=== PATIENT | male | born 1990 | race Caucasian/White ===

== ENCOUNTER 2023-01-28 09:16 | Emergency (ER) | payer MEDICAID, OTHER ==
[~2023-01-28] VITALS: Ht 180.3 cm; Wt 108.9 kg
[2023-01-28 09:44] VITALS: BP_SYST 154; PULSE 77; RESP 20; TEMP 98; O2SAT 97
[2023-01-28] MEDS ORDERED: DOXY100C PO (09:48)
[2023-01-28] MEDS ORDERED: cefTRIAXone 500 MG in LIDOCAINE 1%, 20 ML MDV 1 ML IM ONE (10:00)
[2023-01-28 10:02] LABS: BILIRUBIN,URINE NEGATIVE (NEGATIVE); BLOOD, URINE NEGATIVE (NEGATIVE); CLARITY/URINE Clear (CLEAR); COLOR,URINE YELLOW (YELLOW); GLUCOSE,URINE NEGATIVE (NEGATIVE); KETONES,URINE NEGATIVE (NEGATIVE); LEUKOCYTE ESTERASE ,URINE NEGATIVE (NEGATIVE); NITRITE, URINE NEGATIVE (NEGATIVE); PH,URINE 6.5 (5.0-8.0); PROTEIN URINE NEGATIVE (NEGATIVE)
[2023-01-28 10:27] VITALS: BP_SYST 158; PULSE 90; RESP 20; TEMP 97.6; O2SAT 98
== END 2023-01-28 10:29 | disposition home or self-care (01) ==
LOC: SED 09:16
DX: N34.2 Other urethritis (principal); R36.9 Urethral discharge, unspecified; R30.0 Dysuria; Z79.899 Other long term (current) drug therapy
CPT/HCPCS: 99283; 36415; 96372; 87491; 81003; J0696

== ENCOUNTER 2023-10-30 15:09 | Emergency (ER) | payer MEDICAID, OTHER ==
[~2023-10-30] VITALS: Ht 182.9 cm; Wt 113.4 kg
[~2023-10-30 15:09] MED LIST: DOXY100C PO
[2023-10-30 15:10] VITALS: BP_SYST 138; PULSE 89; RESP 17; TEMP 97.3; O2SAT 97
== END 2023-10-30 15:57 | disposition home or self-care (01) ==
LOC: SED 15:09
DX: Z20.2 Contact with and (suspected) exposure to infections with a predominantly sexual mode of transmission (principal); Z79.2 Long term (current) use of antibiotics
CPT/HCPCS: 36415; 87491; 99283

== ENCOUNTER 2024-01-15 08:02 | Emergency (ER) | payer MEDICAID, OTHER ==
[~2024-01-15] VITALS: Ht 182.9 cm; Wt 113.4 kg
[~2024-01-15 08:02] MED LIST changes: +AUG875 PO
[2024-01-15 08:04] VITALS: BP_SYST 161; PULSE 91; RESP 18; TEMP 98.6; O2SAT 98
[2024-01-15] MEDS: LIDOCAINE 1% 10 MG/ML, 20 ML MDV INJ ONE (08:29)
[2024-01-15] MEDS: cefTRIAXone 1 GM VIAL IM ONE (08:29)
[2024-01-15] MEDS ORDERED: DOXY100C5 PO (09:41)
[2024-01-15 09:58] VITALS: BP_SYST 161; PULSE 91; RESP 18; TEMP 98.6; O2SAT 98
== END 2024-01-15 10:00 | disposition home or self-care (01) ==
LOC: SED 08:02
DX: R36.9 Urethral discharge, unspecified (principal); R39.198 Other difficulties with micturition; Z79.2 Long term (current) use of antibiotics
CPT/HCPCS: 99283; 36415; 96372; 87491; J0696; J2001